=== PATIENT | female | born 1950 | race Caucasian/White ===

== ENCOUNTER → 2016-08-17 | Outpatient (CLI) | payer BC | LOC: MC.RAD 10:20 | DX: Z12.31 Encounter for screening mammogram for malignant neoplasm of breast (principal) ==

== ENCOUNTER → 2017-10-04 | Outpatient (CLI) | payer MEDICARE, BC | LOC: MC.RAD 09:31 | DX: Z12.31 Encounter for screening mammogram for malignant neoplasm of breast (principal) ==

== ENCOUNTER 2018-07-14 21:07 | Emergency (ER) | payer MEDICARE, BC ==
[~2018-07-14] VITALS: Ht 175.3 cm; Wt 90.9 kg
[2018-07-14 21:12] VITALS: BP 194/98; TEMP 98.4
[2018-07-14] MEDS ORDERED: NORCO 325 MG-51 TAB PO (22:09)
[2018-07-14 23:56] VITALS: PULSE 65
== END 2018-07-15 00:09 | disposition home or self-care (01) ==
LOC: COL.ER 21:07
DX: S52.122A Displaced fracture of head of left radius, initial encounter for closed fracture (principal); W01.0XXA Fall on same level from slipping, tripping and stumbling without subsequent striking against object, initial encounter; Y92.22 Religious institution as the place of occurrence of the external cause

== ENCOUNTER → 2018-11-21 | Outpatient (CLI) | payer MEDICARE, BC ==
[~2018-11-21] MED LIST: NORCO 325 MG-51 TAB PO
== END ==
LOC: MC.RAD 14:04
DX: Z12.31 Encounter for screening mammogram for malignant neoplasm of breast (principal)